=== PATIENT | male | born 1975 | race Caucasian/White ===

== ENCOUNTER 2021-01-30 13:05 | Emergency (ER) | payer OTHER ==
[~2021-01-30] VITALS: Ht 185.4 cm; Wt 108.9 kg
[~2021-01-30 13:05] MED LIST: ALBU90OI INH; AMOX500 PO; AZIT250 PO; CYCL10 PO; GUAI600T33 PO; HYDGUAL120 PO; MECL25 PO; RXHYDGUAS PO
[2021-01-30] MEDS ORDERED: Norco 5-325 Ta1 EACH PO (17:20)
[2021-01-30] MEDS ORDERED: ONDA4 PO (17:20)
[2021-01-30] MEDS ORDERED: SULTRIDS PO (17:20)
[2021-01-30] MEDS ORDERED: CEPH500 PO (17:20)
== END 2021-01-30 18:02 | disposition home or self-care (01) ==
LOC: ER 13:05
DX: S56.922A Laceration of unspecified muscles, fascia and tendons at forearm level, left arm, initial encounter (principal); F17.200 Nicotine dependence, unspecified, uncomplicated; Z23 Encounter for immunization; W26.8XXA Contact with other sharp object(s), not elsewhere classified, initial encounter; Y99.0 Civilian activity done for income or pay
CPT/HCPCS: 12001; 73090; 90471; 90714; 96365-59; 99283-25; J0690